=== PATIENT | female | born 1975 | race Caucasian/White ===

== ENCOUNTER 2017-06-05 20:12 | Inpatient (IN) | payer MEDICAID, OTHER ==
[~2017-06-05] VITALS: Ht 167.6 cm; Wt 78.1 kg
[2017-06-05 20:54] LABS: HCG UR LOT HCG7030192
[2017-06-05 21:09] LABS: HCG UR OBC PASS
[2017-06-05 22:04] LABS: HEMATOCRIT 41.8 % (34.6-47.8); HEMOGLOBIN 14.2 g/dL (11.7-16.4); WHITE BLOOD COUNT 13.3 x10^3/uL (3.4-10)
[2017-06-05 22:13] LABS: ASPARTATE AMINO TRANSFERASE 11 U/L (15-37); BLOOD UREA NITROGEN 12 mg/dL (7-18)
[2017-06-05] MEDS ORDERED: CEFOTETAN PMX 2GM/50ML 50 ML IV ONE (23:30)
[2017-06-05] MEDS ORDERED: HYDROmorphone 1 MG/ML, 1ML ONE (23:57)
[2017-06-05] MEDS ORDERED: CEFOTETAN PMX 1GM/50ML 50 ML ONE (23:57)
[2017-06-06] MEDS ORDERED: HYDROmorphone 1 MG/ML, 1ML IVPush PRN
[2017-06-06] MEDS ORDERED: DOXYCYCLINE 100 MG in DEXTROSE 5% 250 ML IV ONE (00:30)
[2017-06-06] MEDS ORDERED: DOXYCYCLINE 100MG TABLET PO ONE (01:30)
[2017-06-06] MEDS ORDERED: metroNIDAZOLE 500 MG TABLET PO ONE (01:30)
[2017-06-06] MEDS ORDERED: ONDANSETRON 2MG/ML, 2ML IVPush PRN (01:30)
[2017-06-06] MEDS ORDERED: DOCUSATE 100 MG CAPSULE PO PRN (01:30)
[2017-06-06] MEDS ORDERED: SIMETHICONE 80 MG CHEW TAB PO PRN (01:30)
[2017-06-06] MEDS ORDERED: LACTATED RINGERS 1,000 ML IV SCH (01:30)
[2017-06-06] MEDS ORDERED: IBUPROFEN 200 MG TABLET PO PRN (01:30)
[2017-06-06] MEDS ORDERED: K-LYTE 25 MEQ TABLET.EFF PO ONE (02:00)
[2017-06-06] MEDS ORDERED: metroNIDAZOLE 500 MG TABLET ONE (02:18)
[2017-06-06] MEDS ORDERED: OMNIPAQUE 350 MG/ML, 100ML BOTTLE ONE (02:49)
[2017-06-06] MEDS: OXYcodone/APAP 5/325MG TABLET PO PRN ×4 (05:01→23:52)
[2017-06-06] MEDS: NICOTINE 21 MG/24 HR PATCH.TD24 TD SCH (06:11)
[2017-06-06 06:36] VITALS: BP 99/56
[2017-06-06 06:50] LABS: HEMATOCRIT 38.5 % (34.6-47.8); WHITE BLOOD COUNT 11.6 x10^3/uL (3.4-10)
[2017-06-06 07:03] LABS: ASPARTATE AMINO TRANSFERASE 9 U/L (15-37); BLOOD UREA NITROGEN 8 mg/dL (7-18)
[2017-06-06 07:35] LABS: HIV 1&2 ANTIBODY SCREEN Nonreactive (Nonreactive); HIV-1 p24 ANTIGEN Nonreactive (Nonreactive)
[2017-06-06] MEDS: CEFOTETAN PMX 2GM/50ML 50 ML IV SCH ×2 (11:19→23:09)
[2017-06-06 13:34] VITALS: BP 109/69
[2017-06-06 19:48] VITALS: BP 112/80
[2017-06-07 05:18] VITALS: BP 104/66
[2017-06-07] MEDS: OXYcodone/APAP 5/325MG TABLET PO PRN (05:21)
[2017-06-07] MEDS: NICOTINE 21 MG/24 HR PATCH.TD24 TD SCH (05:22)
[2017-06-07 06:50] VITALS: BP 99/58
[2017-06-07 07:15] LABS: HEMOGLOBIN 13.1 g/dL (11.7-16.4); WHITE BLOOD COUNT 8.4 x10^3/uL (3.4-10)
[2017-06-07] MEDS: metroNIDAZOLE 500 MG TABLET PO SCH ×2 (08:10→09:00)
[2017-06-07] MEDS: DOXYCYCLINE 100MG TABLET PO SCH ×2 (08:10→09:00)
[2017-06-07 12:09] VITALS: BP 139/92
== END 2017-06-07 12:20 | disposition home or self-care (01) | DRG 759 ==
LOC: ED 21:18 → EDIP 06-06 01:23 → 4NOR 06-06 04:05
PROVIDERS: ADMIT Obstetrics & Gynecology; ATTEND Obstetrics & Gynecology
DX: N70.93 Salpingitis and oophoritis, unspecified (principal); J45.909 Unspecified asthma, uncomplicated
CPT/HCPCS: 36415; 74177; 76830; 80053; 81001; 81025; 83690; 85025; 86592; 86703; 86704; 86706; 86708; 86803; 87086; 87340; 87491; 87591; 87899; 96365; 96375; J1170; Q9967; G0435; J7120; S0074

== ENCOUNTER 2019-03-19 14:05 | Emergency (ER) | payer SELFPAY ==
[~2019-03-19] VITALS: Ht 170.2 cm; Wt 80.7 kg
--- NOTE | 2019-03-19 14:23 | NUR ---
PT TO ROOM FROM LOBBY
--- NOTE | 2019-03-19 14:39 | NUR ---
Assumed care of patient. C/O BUE tingling, nausea, and "cold sweats". Will continue to monitor.
[2019-03-19 15:09] LABS: ALANINE AMINOTRANSFERASE 16 U/L (12-78); ALBUMIN 3.5 g/dL (3.4-5.0); ANION GAP 7 mmol/L (5-15); CALCIUM 8.5 mg/dL (8.5-10.1); CHLORIDE 109 mmol/L (98-107)
[2019-03-19 15:11] LABS: BASOPHILS # (AUTO) 0.02 x10^3/uL (0-0.1); BASOPHILS % (AUTO) 0 % (0-1); EOSINOPHILS # (AUTO) 0.14 x10^3/uL (0-0.4); EOSINOPHILS % (AUTO) 2 % (1-7); LYMPHOCYTES # (AUTO) 1.95 x10^3/uL (1-3.4); LYMPHOCYTES % (AUTO) 22 % (22-44); MD NO; MEAN CORPUSCULAR HEMOGLOBIN 32.3 pg (27.0-34.8); MEAN CORPUSCULAR VOLUME 97.9 fL (80-100); MEAN PLATELET VOLUME 8.1 fL (7.4-10.4); MONOCYTES # (AUTO) 0.53 x10^3/uL (0.2-0.8); MONOCYTES % (AUTO) 6 % (2-9); NEUTROPHILS # (AUTO) 6.26 x10^3/uL (1.8-6.8); NEUTROPHILS % (AUTO) 70 % (42-75); PLATELET COUNT 225 x10^3/uL (130-400); RED BLOOD COUNT 4.43 x10^6/uL (3.82-5.3); RED CELL DISTRIBUTION WIDTH 15.2 % (9.6-15.2)
[2019-03-19 15:12] LABS: ALKALINE PHOSPHATASE 56 U/L (45-117); BILIRUBIN,TOTAL 0.3 mg/dL (0.2-1.0); CREATININE 0.69 mg/dL (0.55-1.02); TOTAL PROTEIN 6.8 g/dL (6.4-8.2)
[2019-03-19 15:22] LABS: HCG UR SG 1.011 (1.003-1.030)
[2019-03-19 15:26] LABS: CULTURE INDICATED? YES; MICROSCOPIC INDICATED
--- NOTE | 2019-03-19 15:31 | NUR ---
Resting in [facility]. No needs.
[2019-03-19 16:26] VITALS: BP 124/70
--- NOTE | 2019-03-19 16:27 | NUR ---
Patient/Caregiver given discharge instructions and they have confirmed that they understand the instructions. Patient ambulatory with steady gait.
== END 2019-03-19 16:28 | disposition home or self-care (01) ==
LOC: ED 15:26
DX: N30.00 Acute cystitis without hematuria (principal); J45.909 Unspecified asthma, uncomplicated
CPT/HCPCS: 36415; 71045; 80053; 81001; 81025; 85025; 87077; 87086; 87186; 93005; 99284

== ENCOUNTER 2019-03-27 16:12 | Day surgery (SDC) | payer SELFPAY ==
[~2019-03-27] VITALS: Ht 170.2 cm; Wt 82.0 kg
[2019-03-27 18:38] VITALS: BP 133/80
== END 2019-03-27 21:25 | disposition home or self-care (01) ==
LOC: ED 17:38 → EDIP 18:32 → UNDOADMIN 18:32 → OUT 20:00 → EDIP 21:25 → 4NOR 21:25 → OUT 21:25 → 4NOR 22:29 → ED 22:29 → UNDODISIN 03-28 06:00
PROVIDERS: ATTEND Emergency Medicine
DX: K35.80 Unspecified acute appendicitis (principal); J44.9 Chronic obstructive pulmonary disease, unspecified; K21.9 Gastro-esophageal reflux disease without esophagitis; D72.829 Elevated white blood cell count, unspecified; F17.210 Nicotine dependence, cigarettes, uncomplicated; Z72.89 Other problems related to lifestyle
CPT/HCPCS: 36415; 44970; 74177; 80053; 81001; 81025; 83690; 85025; 87086; 88304; J0330; J0690; J0696; J1100; J1170; J2250; J2405; J2704; J2710; J3010; J3490; J7030; Q9967; G0378

== ENCOUNTER 2020-08-17 12:10 | Emergency (ER) | payer MEDICAID ==
[~2020-08-17] VITALS: Ht 170.2 cm; Wt 76.8 kg
--- NOTE | 2020-08-17 13:05 | NUR ---
Pt states she has been having severe heartburn with nausea and vomting for the last 2 days. The patient states she has beeen to and from [place] before leaving for [place] she had a CT scan in October at [facility] that indicated a nodule should be followed up with. Pt has not followed up and moved back to [place] in July. 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
[2020-08-17] MEDS ORDERED: FAMOTIDINE 20 MG/2 ML IVPush ONE (13:30)
[2020-08-17] MEDS ORDERED: SODIUM CHLORIDE 0.9% 1,000ML IVBOLUS ONE (13:30)
[2020-08-17] MEDS ORDERED: ONDANSETRON 2MG/ML, 2ML IVPush ONE (13:30)
[2020-08-17] MEDS ORDERED: SODIUM CHLORIDE FLUSH 10ML SYR IVF ONE (13:30)
[2020-08-17] MEDS ORDERED: FAMOTIDINE 20 MG/2 ML ONE (13:34)
[2020-08-17] MEDS ORDERED: ONDANSETRON 2MG/ML, 2ML ONE (13:34)
--- NOTE | 2020-08-17 14:06 | NUR ---
Pt medicated, calm and cooperative. Patients pain has improved with medication. Will continue to monitor.
[2020-08-17 14:09] LABS: BASOPHILS % (AUTO) 1 % (0-1); EOSINOPHILS % (AUTO) 2 % (1-7); LYMPHOCYTES % (AUTO) 23 % (22-44); MEAN CORPUSCULAR HEMOGLOBIN 32.2 pg (27.0-34.8); MEAN CORPUSCULAR HGB CONC 34.1 g/dL (32.4-35.8); MEAN PLATELET VOLUME 7.7 fL (7.4-10.4); MONOCYTES % (AUTO) 7 % (2-9); NEUTROPHILS % (AUTO) 68 % (42-75); PLATELET COUNT 243 x10^3/uL (130-400); RED BLOOD COUNT 4.49 x10^6/uL (3.82-5.3)
[2020-08-17 14:10] LABS: MD NO
[2020-08-17 14:19] LABS: ALANINE AMINOTRANSFERASE 15 U/L (12-78); ALBUMIN 3.8 g/dL (3.4-5.0); ANION GAP 5 mmol/L (5-15); CALCIUM 9.1 mg/dL (8.5-10.1); CHLORIDE 101 mmol/L (98-107); CREATININE 0.71 mg/dL (0.55-1.02)
[2020-08-17 14:24] LABS: ALKALINE PHOSPHATASE 81 U/L (45-117); BILIRUBIN,TOTAL 0.5 mg/dL (0.2-1.0); TOTAL PROTEIN 7.3 g/dL (6.4-8.2)
--- NOTE | 2020-08-17 14:54 | NUR ---
PT STATES PAIN RELIEF. CHART UP FOR ERP
[2020-08-17] MEDS ORDERED: MAGNESIUM SULFATE 1 GM in SODIUM CHLORIDE 0.9% 50 ML IV ONE (15:00)
[2020-08-17] MEDS ORDERED: POTASSIUM CHLORIDE 10% 40 MEQ/30 ML UDC PO ONE (15:00)
[2020-08-17] MEDS ORDERED: MAGNESIUM SULFATE/D5W 0 ML ONE (15:13)
--- NOTE | 2020-08-17 15:45 | NUR ---
Pt up to bathroom with even steady agit.
--- NOTE | 2020-08-17 16:15 | NUR ---
Magnesium hung plan of care discussed. VS rechecked
--- NOTE | 2020-08-17 16:52 | NUR ---
iv running. pt watching TV. HR sinus rythm
--- NOTE | 2020-08-17 17:32 | NUR ---
IV discontinued, flushed. Pt to be discharged. Pt states she feels much better.
[2020-08-17 17:34] VITALS: BP 160/51
== END 2020-08-17 17:36 | disposition home or self-care (01) ==
LOC: ED 15:07
DX: E86.0 Dehydration (principal); R11.2 Nausea with vomiting, unspecified; E87.6 Hypokalemia; F17.200 Nicotine dependence, unspecified, uncomplicated; J45.909 Unspecified asthma, uncomplicated
CPT/HCPCS: 36415; 80053; 83690; 84703; 85025; 93005; 96361; 96365; 96375; 99285; J2405; J3475; J7030

== ENCOUNTER 2020-10-15 11:24 | Emergency (ER) | payer MEDICAID ==
[~2020-10-15] VITALS: Ht 170.2 cm; Wt 75.5 kg
--- NOTE | 2020-10-15 11:33 | NUR ---
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
--- NOTE | 2020-10-15 13:48 | NUR ---
Patient/Caregiver given discharge instructions and they have confirmed that they understand the instructions. Patient ambulatory with steady gait.
[2020-10-15 13:49] VITALS: BP 118/78
== END 2020-10-15 13:51 | disposition home or self-care (01) ==
LOC: ED 12:30
DX: J06.9 Acute upper respiratory infection, unspecified (principal); Z20.822 Contact with and (suspected) exposure to COVID-19; R94.31 Abnormal electrocardiogram [ECG] [EKG]; J45.909 Unspecified asthma, uncomplicated
CPT/HCPCS: 71045; 93005; 99285; U0003

== ENCOUNTER 2021-01-10 15:02 | Emergency (ER) | payer MEDICAID ==
[~2021-01-10] VITALS: Ht 170.2 cm; Wt 74.8 kg
--- NOTE | 2021-01-10 15:33 | NUR ---
PT TO ROOM FROM LOBBY
--- NOTE | 2021-01-10 15:43 | NUR ---
PT EXPERIENCING CHEST PAIN SINCE LAST NIGHT. PRESSURE MID CHEST W N/V. CLAMMY, DOES NOT RADIATE ANYWHERE. HX OF ASTHMA, SMOKER. 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 SEEN BY
[2021-01-10] MEDS ORDERED: ASPIRIN 81 MG TABLET CHEW PO ONE (16:00)
[2021-01-10] MEDS ORDERED: ASPIRIN 81 MG TABLET CHEW ONE (16:07)
--- NOTE | 2021-01-10 16:10 | NUR ---
ADMIN PO ASA [id number] PER EMAR. LAB AT BEDSIDE
[2021-01-10 16:20] LABS: BASOPHILS % (AUTO) 0 % (0-1); EOSINOPHILS % (AUTO) 3 % (1-7); LYMPHOCYTES % (AUTO) 22 % (22-44); MEAN CORPUSCULAR HEMOGLOBIN 32.7 pg (27.0-34.8); MEAN PLATELET VOLUME 7.3 fL (7.4-10.4); MONOCYTES % (AUTO) 6 % (2-9); NEUTROPHILS % (AUTO) 69 % (42-75); PLATELET COUNT 213 x10^3/uL (130-400); RED BLOOD COUNT 4.17 x10^6/uL (3.82-5.3); RED CELL DISTRIBUTION WIDTH 14.4 % (9.6-15.2)
[2021-01-10 16:21] LABS: MD NO
[2021-01-10 16:32] LABS: ALANINE AMINOTRANSFERASE 18 U/L (12-78); ALBUMIN 3.5 g/dL (3.4-5.0); ANION GAP 5 mmol/L (5-15); CALCIUM 8.3 mg/dL (8.5-10.1); CHLORIDE 110 mmol/L (98-107); CREATININE 0.73 mg/dL (0.55-1.02)
[2021-01-10 16:36] LABS: ALKALINE PHOSPHATASE 70 U/L (45-117); BILIRUBIN,TOTAL 0.4 mg/dL (0.2-1.0); TOTAL PROTEIN 6.7 g/dL (6.4-8.2); TROPONIN I < 0.015 ng/mL (0.000-0.045)
--- NOTE | 2021-01-10 18:39 | NUR ---
PT AMBULATD TO BATHROOM STEADY GAIT.
--- NOTE | 2021-01-10 18:46 | NUR ---
Report from ASHLEY Wallace. This RN to assume care.
--- NOTE | 2021-01-10 18:46 | NUR ---
REPORT TO DARIEN
[2021-01-10] MEDS ORDERED: ALBUTEROL/IPRATROPIUM 2.5MG/0.5MG, 3 ML ONE (19:07)
--- NOTE | 2021-01-10 19:12 | NUR ---
Patient requesting breathing tx. States she is a little wheezy; hx of asthma. Admin meds per oct. Lab at bedside.
[2021-01-10 19:30] VITALS: BP 128/88
[2021-01-10] MEDS ORDERED: ALBUTEROL/IPRATROPIUM 2.5MG/0.5MG, 3 ML NEB ONE (19:30)
[2021-01-10 19:34] LABS: TROPONIN I < 0.015 ng/mL (0.000-0.045)
--- NOTE | 2021-01-10 20:25 | NUR ---
Discharge instructions given. All questions and concerns addressed. Patient ambulatory with a steady gait. Belongings with patient.
== END 2021-01-10 20:26 | disposition home or self-care (01) ==
LOC: ED 16:57
DX: J45.31 Mild persistent asthma with (acute) exacerbation (principal); R07.89 Other chest pain; R42 Dizziness and giddiness; F17.210 Nicotine dependence, cigarettes, uncomplicated
CPT/HCPCS: 36415; 71045; 80053; 84484; 85025; 85379; 93005; 94640